=== PATIENT | female | born 1965 | race Caucasian/White ===

== ENCOUNTER 2025-05-11 09:43 | Emergency (ER) | payer BC, SELFPAY ==
[2025-05-11 09:43] VITALS: PULSE 95; RESP 26; TEMP 36.6; O2SAT 197; BMI 53.6
--- NOTE | 2025-05-11 09:45 | EDS_ITS ---
HPI History of Present Illness Chief Complaint: Shortness of Breath Detail of Chief Complaint: Acute allergic reaction with wheezing. Informant: patient Onset/Context/Timing Onset: Today Context: Sudden Onset Timing: Continuous Current Severity: Moderate Maximum Severity: Moderate Narrative Narrative: 59-year-old female history of asthma. Seeing a local retail hide breakfast they checked out about 30 minutes ago around 915 started having sudden onset of wheezing, shortness of breath and redness to her skin with itching like an acute allergic reaction. She has not been bit or stung by anything. She has no known allergies to foods or medicines. She has never had a reaction like this before. Prior similar symptoms: No Recent Illness/Hospitalization: No PFSH PFSH Home Medications ?Medication ?Instructions ?Recorded ?Last Taken ?Type epinephrine 0.3 mg/0.3 mL 0.3 mg (0.3 mL) IM Q10M PRN PRN 05/11/25 Unknown Rx injection, auto-injector anaphylaxis #2 ea prednisone 50 mg tablet 50 mg PO DAILY 3 days #3 tab s 05/11/25 Unknown Rx Allergy/AdvReac Type Severity Reaction Status Date / Time No Known Allergies Allergy Verified 05/11/25 09:46 Social History Smoking Status: Never smoker ROS ROS ED ROS Narrative Denies recent illness. Wheezing and short of breath now. Constitutional Constitutional ED: Denies fever(s) Eyes Eyes: Denies blurry vision ENT ENT ED: Denies ear pain Cardiovascular Cardiovascular: Denies chest pain Respiratory/Chest Respiratory/Chest: Denies cough Gastrointestinal Gastrointestinal: Denies abdominal pain Genitourinary Genitourinary ED: Denies dysuria Musculoskeletal Musculoskeletal: Denies arthralgias Integumentary Reports rash; Denies abscess Neurologic Neurologic: Denies headache(s) Psychiatric Psychiatric: Denies anxiety Endocrine Endocrinology: Denies cold intolerance Hematologic/Lymphatic Hematologic/Lymphatic: Reports none Allergic/Immunologic Allergic/Immunologic ED: Denies mouth swelling, tongue swelling or urticaria EXAM Physical Exam Narrative Exam Narrative: 59-year-old female vital signs are stable her pulse ox is 90% on room air no signs hypoxia. H EENT exam pupils round react to light. Moist mutes membranes there is no swelling of her lips or tongue or her posterior pharynx. No trouble swallowing. No drooling. Neck nontender no lymphadenopathy. No meningismus. Lungs expiratory wheezing. No rales or rhonchi. Equal symmetrical. Heart regular rhythm rate about 90 no murmur. Chest wall ribs nontender. She does have a red rash that blanches to palpation. No hives. Abdomen soft nontender normal bowel sounds without peritoneal signs. Prior cholecystectomy surgical scar. Moving all 4 extremities. Nontender no edema. Red rash to her forearms. Again blanches. No hives. Back nontender. Neurologically she is awake alert. Answering questions following commands. No focal motor deficits. Exam consistent with acute allergic reaction. Const Vital Signs: 05/11/25 09:43 05/11/25 09:47 05/11/25 10:11 Temperature 97.9 F Temperature Source Temporal Pulse Rate 95 70 Respiratory Rate 26 H 12 Respiratory Effort Short of Breath Respiratory Pattern Tachypnea Normal Blood Pressure Blood Pressure Mean Pulse Ox 197 Oxygen Delivery Method Room Air Room Air 05/11/25 10:53 Temperature Temperature Source Pulse Rate 82 Respiratory Rate 16 Respiratory Effort Respiratory Pattern Blood Pressure 160/81 H Blood Pressure Mean 107 Pulse Ox 99 Oxygen Delivery Method Room Air Positive well nourished and well developed; Negative for cachectic or contractures General Appearance ED: well developed; Negative for cachectic, contractures, cyanotic, diaphoretic, NAD or pallor Nutritional Appearance: Negative for cachectic HEENT Reports moist mucous membranes Eyes PERRL and EOMs intact bilaterally General Eye ED: Negative for pale conjunctiva or scleral icterus Neck no lymphadenopathy, supple and no JVD Neck Narrative: Red rash that blanches. General: Negative for tenderness Chest Wall inspection of chest normal and palpation of chest normal Chest Narrative: Red rash that blanches. Resp No normal respiratory effort and No clear to auscultation bilaterally Resp Narrative: Prolonged expiratory phase. Expiratory wheezing. Auscultation: wheezes Cardio regular rate, regular rhythm, S1 normal heart sound, S2 normal heart sound and no murmurs GI normal to inspection, nondistended, normoactive bowel sounds, non-tender, non- distended and no masses Auscultation: normoactive bowel sounds Palpation: soft; Negative for tender, guarding or rebound tenderness present Back/Spine no CVA tenderness Extremity Negative for normal to inspection Extremity Narrative: Red rash like allergic reaction that blanches to palpation. No hives. General Extremety ED: Negative for edema or tenderness General Extremity: Negative for edema Neuro oriented x3 and CN's II-XII intact bilaterally Sensorium / Orientation: alert Motor Exam: strength 5/5 throughout Psych mental status grossly normal Mood & Affect: anxious Skin No no rashes or lesions noted, no wounds and skin turgor normal General Skin Exam: Negative for jaundice or pallor Lesions: No lesion noted Rashes: rashes noted MDM MDM MDM Narrative Medical decision making narrative: 59-year-old female with asthma with acute allergic reaction with wheezing and a rash. She be treated with IV Solu-Medrol and IV Benadryl. Aerosol treatment also for her wheezing. Repeat exam patient doing well at 11:20 AM. Rash is resolved. Her wheezing is resolved. She is feeling much better. She is from out [facility] and she will follow-up with her primary care physician in [place]. She will be written a prescription for an EpiPen as needed for severe allergic reaction and prednisone 50 mg a day for the next 3 days as needed. I could not get those filled here today because our pharmacy for outpatient prescriptions is not available today. History & Record Review Discussion w/independent historian: Patient Discharge Plan Triage Chief Complaint: Shortness of Breath ED Provider: Boris Cardenas Dx/Rx/DC Orders Clinical Impression: Acute allergic reaction, History of asthma, Acute bronchospasm Instructions: ED General Allergic Reactions Prescriptions: New epinephrine 0.3 mg/0.3 mL auto-injector 0.3 mg IM Q10M PRN PRN (Reason: anaphylaxis) Qty: 2 0RF Rx Instructions: for 2 doses prednisone 50 mg tablet 50 mg PO DAILY 3 Days Qty: 3 0RF Primary Care Provider: [facility] ,Out of Referrals: [facility] Doctor,Out of [Primary Care Provider] - 3-5 Days Activity Restrictions/Additional Instructions: If you are still having symptoms start the steroid tomorrow which is prednisone 40 mg a day. You can stop it whenever your symptoms resolve. Benadryl as needed for itching or rash. He will be written for prescription for a epinephrine pen. If you would ever have a severe reaction like this you could use that to counteract the reaction. You can decide to follow-up with your doctor if you want further evaluation or allergy testing. Print Language: Yakut Disposition Disposition: Home, Self Care
--- NOTE | 2025-05-11 09:46 | ED.RN ---
50 benadryl and 125 of solumedrol given 0944
[2025-05-11 09:47] VITALS: O2SAT 99
[2025-05-11] MEDS: DiphenhydrAMINE 50 MG/ML Syringe IV (09:48)
[2025-05-11 10:11] VITALS: PULSE 70; RESP 12
[2025-05-11 10:53] VITALS: BP 160/81; PULSE 82; RESP 16; O2SAT 99
--- NOTE | 2025-05-11 10:54 | ED.RN ---
PT WAS EATING BREAKFAST WHILE OUT OF TOWN WITH SISTER. ATE BREAKFAST AT THEIR HOTEL, DENIES ANY KNOWN ALLERGIES. PT STARTED FEELING ITCHING ON UPPER EXTREMITIES AND ABD, AND HANDS. FELT LIKE SHE WAS SHORT OF BREATH BUT DENIED ANY ITCHING IN THE THROAT/TONGUE.
[2025-05-11 11:41] VITALS: BP 155/84; PULSE 76; RESP 16; TEMP 36.6; O2SAT 100
== END 2025-05-11 11:45 | disposition home or self-care (01) ==
PROVIDERS: Emergency Provider Emergency Medicine; Visit Provider Emergency Medicine
DX: T78.40XA Allergy, unspecified, initial encounter (principal); J45.909 Unspecified asthma, uncomplicated; X58.XXXA Exposure to other specified factors, initial encounter
CPT/HCPCS: 94640; 99284